=== PATIENT | male | born 1965 ===

== ENCOUNTER → 2018-02-05 | Outpatient (CLI) | payer OTHER ==
[~2018-02-05] MED LIST: CLIN40GE2 TP; FINA1TAB7 PO
[2018-02-05 09:05] LABS: PLATELET COUNT, AUTOMATED 229 K/uL (150-450)
== END ==
LOC: LAB 08:49
PROVIDERS: ATTEND Internal Medicine
DX: Z00.00 Encounter for general adult medical examination without abnormal findings (principal); L65.9 Nonscarring hair loss, unspecified; L70.9 Acne, unspecified
CPT/HCPCS: 36415; 81001; 82040; 82247; 82310; 82374; 82435; 82465; 82565; 82947; 83718; 84075; 84132; 84153; 84155; 84295; 84402; 84403; 84443; 84450; 84460; 84478; 84520; 85025

== ENCOUNTER → 2018-11-26 | Outpatient (CLI) | payer OTHER ==
[~2018-11-26] MED LIST changes: +ALPR-429 PO; +CLON-331 PO; +TRAZ50TA34 PO; +TRET45CR28 TP
== END ==
LOC: LAB 16:31
PROVIDERS: ATTEND Internal Medicine
DX: Z11.3 Encounter for screening for infections with a predominantly sexual mode of transmission (principal)
CPT/HCPCS: 36415; 86703

== ENCOUNTER → 2019-01-04 | Outpatient (CLI) | payer OTHER ==
[~2019-01-04] MED LIST changes: +HYDR-385 PO; +VALA100059 PO
[2019-01-04 10:36] LABS: PLATELET COUNT, AUTOMATED 231 K/uL (150-450)
[2019-01-04 10:46] LABS: LDL CHOLESTEROL 120 mg/dl
== END ==
LOC: LAB 10:17
PROVIDERS: ATTEND Internal Medicine
DX: Z00.00 Encounter for general adult medical examination without abnormal findings (principal); F41.9 Anxiety disorder, unspecified; E78.49 Other hyperlipidemia; Z11.3 Encounter for screening for infections with a predominantly sexual mode of transmission
CPT/HCPCS: 36415; 80074; 82040; 82247; 82310; 82374; 82435; 82465; 82565; 82947; 83718; 84075; 84132; 84153; 84155; 84295; 84443; 84450; 84460; 84478; 84520; 85025; 87491; 87591

== ENCOUNTER 2019-01-14 01:12 | Day surgery (SDC) | payer OTHER ==
[~2019-01-14] VITALS: Ht 177.8 cm; Wt 90.7 kg
[2019-01-14] MEDS ORDERED: LIDOCAINE MPF 1% 5 ML VIAL ONE (09:15)
[2019-01-14] MEDS ORDERED: PROPOFOL EMUL(*) 10MG/ML 20 ML 40 ML ONE (09:15)
[2019-01-14] MEDS ORDERED: LIDOCAINE/SOD BICARB 8.4% SYR ID ONE (10:20)
[2019-01-14] MEDS ORDERED: NORMOSOL R SOLN(*) 1000 ML BAG 1,000 ML IV PRN (10:20)
[2019-01-14 10:44] VITALS: BP 121/73
[2019-01-14 11:40] VITALS: BP 95/63
--- NOTE | 2019-01-14 11:45 | Short(Outpt) Discharge Summary ---
Discharge Summary Reason for Hosp/Final Diag: (1) Colon cancer screening Status: Chronic Hospital Course & Plan: Colonoscopy completed without problems. Normal. Colonoscopy in 10 years. Departure Discharge to: Home, Self Care Discharge Instructions Home Meds Active Scripts Tretinoin 0.1% Top Cream (RETIN-A 0.1% TOP CREAM) 45 Gm Cream..g., 1 ALBERT TP QHS, #1 TU 0 Refills Apply pea size amount. Prov:MICHELA SANTIAGO MD 01/06/19 Finasteride (FINASTERIDE) 1 Mg Tablet, 1 MG PO QDAY, #90 TAB 3 Refills Prov:MICHELA SANTIAGO MD 01/06/19 Alprazolam (XANAX) 0.5 Mg Tablet, 0.5-1 TAB PO TID PRN for ANXIETY, #30 TAB 0 Refills Prov:MARILYN ADEN DNP, [employer] OPERATOR-BC 12/30/18 Diet: Regular Activity: As Tolerated Special Instructions: Your colonoscopy was completed without any problems and your prep was excellent (Good Job!!). I didn't find any polyps or other abnormalities; it was normal. I recommend that your next colonoscopy be in 10 years. Copies to: MICHELA SANTIAGO MD ; FREDDY SUAZO MD January 14, 2019 11:45
--- NOTE | 2019-01-14 11:46 | NUR ---
1140 PT ARRIVED TO [place] VIA CART, SAFETY MAINTAINED, INITIAL VITALS BY Livier FINK RN. VSS, FLUIDS WIDE OPEN 1145 DR. SUAZO AT BEDSIDE TO DISCUSS FINDINGS
--- NOTE | 2019-01-14 12:03 | OPERATIVE REPORT 1 ---
EVENT DATE: January 14, 2019 SURGEON: Morris Bragg MD ANESTHESIOLOGIST: Carl Chiang MD ANESTHESIA: TIVA PREOPERATIVE DIAGNOSIS Colorectal cancer screening, average risk. POSTOPERATIVE DIAGNOSIS Colorectal cancer screening, average risk. PROCEDURE PERFORMED Colonoscopy. COMPLICATIONS None. CONDITION Stable. ESTIMATED BLOOD LOSS None. FINDINGS This patient's colon was completely normal. The prep was excellent. Withdrawal time was 8 minutes. INDICATIONS This is a 53-year-old gentleman with no family history of colon or rectal cancer and no GI symptoms, whose last colonoscopy was 11 year ago and he has been referred for a routine, average risk screening colonoscopy. He is [id number] and so fits the criteria for screening. DESCRIPTION OF PROCEDURE The patient was brought to the endoscopy room, placed in the left lateral decubitus position on the gurney. TIVA anesthesia was administered and digital rectal exam was completed which was unremarkable. I obtained the scope and tested it to insure it was completely functional. I lubricated it. I inserted into his rectum through his anus. I advanced the scope with very little difficulty all the way through to the cecum and also into the terminal ileum and then slowly withdrew the scope as I looked at all mucosal surfaces for any abnormalities. There were a few areas of the transverse and descending colon that were more difficult to keep insufflated and I took more time in these areas to inspect them, but in the end I did not find any polyps or other abnormalities throughout this patient's colon. When the tip was in the rectum, I did retroflex the scope to look at the upper anal canal and distal rectum and found no abnormalities there. After the procedure was done, I desufflated the rectum and withdrew the scope from his body and he was transported to the recovery room in stable condition having tolerated the procedure without any apparent problems. This was a normal colonoscopy and the prep was excellent and I have recommended that he have another colonoscopy in 10 years for screening. AYDEN
[2019-01-14 12:08] VITALS: BP 106/68
[2019-01-14 12:22] VITALS: BP 128/84
[2019-01-14 12:23] VITALS: BP 111/87
--- NOTE | 2019-01-14 13:19 | NUR ---
1155 SBAR TO Brittany UPTON, RN 1225 SBAR FROM Brittany UPTON RN PT DRESSING 1230 IV OUT, PRESSURE DRESSING APPLIED, D/C INSTRUCTIONS COVERED, WAITING ON COLONOSCOPY PICTURES FROM OR AND RIDE TO ARRIVE 1240 GOT CLARIFICATION FROM OR THAT PICTURES WOULD NOT BE AVIALABLE FOR PT TO TAKE HOME, COVERED D/C INSTRUCTIONS 1250 MET PT'S RIDE OUTSIDE OF ADMITTING ENTRANCE AND COVERED ANESTHESIA PRECAUTIONS. PT SELF TRANSFERRED INTO VEHICLE WITHOUT INCIDENT, STEADY ON FEET, ALL BELONGINGS WITH PT
== END 2019-01-14 12:50 | disposition home or self-care (01) ==
LOC: OR 01:12
PROVIDERS: ATTEND Surgery
DX: Z12.11 Encounter for screening for malignant neoplasm of colon (principal)
CPT/HCPCS: 00812; 45378; J2001; J2704